=== PATIENT | male | born 1950 | race Caucasian/White ===

== ENCOUNTER 2020-09-03 09:22 | Outpatient (CLI) | payer OTHER | END 2020-09-03 23:59 | disposition home or self-care (01) | LOC: RAD 09:22 | PROVIDERS: ATTEND Orthopaedic Surgery | DX: S62.91XA Unspecified fracture of right hand, initial encounter for closed fracture (principal); X58.XXXA Exposure to other specified factors, initial encounter; Y93.89 Activity, other specified; Y92.89 Other specified places as the place of occurrence of the external cause; Y99.8 Other external cause status | CPT/HCPCS: 73120 ==